=== PATIENT | female | born 1965 | race Caucasian/White ===

== ENCOUNTER 2025-03-15 06:11 | Day surgery (SDC) | payer BC ==
[2025-03-15] MEDS ORDERED: ACETAMINOPHEN 500 MG TABLET (FP) PO PRN (08:42)
[2025-03-15] MEDS: LIDOCAINE HCL 1% PRESERVATIVE FREE - 30ML VIAL IJ ONE (10:59)
[2025-03-15] MEDS: IOHEXOL 180 MG/1 ML ML IJ ONE ×2 (11:00)
[2025-03-15] MEDS: BUPIVACAINE HCL/PF 0.5% (5MG/ML) 10 ML VIAL IJ ONE (11:01)
[2025-03-15] MEDS: TRIAMCINOLONE ACET 40MG/1ML VIAL IM ONE ×2 (11:02)
[2025-03-15 13:33] VITALS: BP 107/76; PULSE 93; RESP 18; TEMP 97.3
== END 2025-03-15 11:40 | disposition home or self-care (01) ==
LOC: JASU-SURG 06:11
PROVIDERS: ATTEND Pain Medicine Pain Medicine
PROC: 3E0U3BZ Introduction of Anesthetic Agent into Joints, Percutaneous Approach (ICD-10-PCS; 2025-03-15)
PROC: 3E0U33Z Introduction of Anti-inflammatory into Joints, Percutaneous Approach (ICD-10-PCS; principal; 2025-03-15 10:30)
DX: M53.3 Sacrococcygeal disorders, not elsewhere classified (principal)
CPT/HCPCS: 76000-TC-FY